=== PATIENT | male | born 1970 | race Caucasian/White ===

== ENCOUNTER 2017-04-24 17:00 | Emergency (ER) | payer MEDICAID ==
[~2017-04-24] VITALS: Ht 188 cm; Wt 95.5 kg
[2017-04-24 17:04] VITALS: BP 129/83
[2017-04-24] MEDS ORDERED: SODIUM CHLORIDE FLUSH 10ML SYR IVF ONE (17:30)
[2017-04-24] MEDS ORDERED: SODIUM CHLORIDE 0.9% 1,000 ML IV ONE (17:35)
[2017-04-24] MEDS ORDERED: MORPHINE SULFATE 4 MG/ML, 1ML ONE (17:52)
[2017-04-24] MEDS ORDERED: ONDANSETRON 2MG/ML, 2ML ONE (17:52)
[2017-04-24] MEDS ORDERED: ONDANSETRON 2MG/ML, 2ML IVPush ONE (18:00)
[2017-04-24] MEDS ORDERED: MORPHINE SULFATE 4 MG/ML, 1ML IVPush PRN (18:00)
[2017-04-24] MEDS ORDERED: HYDROcodone/APAP 5/325 TABLET PO ONE (18:00)
[2017-04-24] MEDS ORDERED: LIDOCAINE 1%, 20ML SQ ONE (18:30)
[2017-04-24 18:49] LABS: BLOOD UREA NITROGEN 15 mg/dL (7-18)
[2017-04-24] MEDS ORDERED: LIDOCAINE 1%, 20ML ONE ×2 (18:53→20:08)
[2017-04-24 19:12] LABS: DIFF TOTAL CELLS COUNTED 100 CELL DIFF
[2017-04-24 19:13] LABS: MONOS WITH VACUOLES 1+
[2017-04-24 19:15] LABS: VERIFY COUNTS? YES
[2017-04-24] MEDS ORDERED: HYDROmorphone 1 MG/ML, 1ML IM ONE (20:00)
[2017-04-24] MEDS ORDERED: CEFTRIAXONE 1,000 MG IM ONE (20:00)
[2017-04-24] MEDS ORDERED: HYDROmorphone 1 MG/ML, 1ML ONE ×2 (20:06→20:08)
[2017-04-24] MEDS ORDERED: CEFTRIAXONE 1,000 MG ONE (20:08)
== END 2017-04-24 20:56 | disposition home or self-care (01) ==
LOC: ED 20:21
DX: L02.414 Cutaneous abscess of left upper limb (principal); F15.10 Other stimulant abuse, uncomplicated; F11.10 Opioid abuse, uncomplicated
CPT/HCPCS: 10060; 36415; 73090; 80048; 82040; 85025; 96372; 99285; J0696; J1170

== ENCOUNTER 2017-06-04 18:26 | Emergency (ER) | payer MEDICAID ==
[~2017-06-04] VITALS: Ht 188 cm; Wt 94.2 kg
[2017-06-04 18:28] VITALS: BP 117/81
[2017-06-04] MEDS ORDERED: LIDOCAINE 1%, 20ML ONE (18:59)
[2017-06-04] MEDS ORDERED: LIDOCAINE 1%, 20ML SQ ONE (19:00)
[2017-06-04] MEDS ORDERED: SULFAMETH./TRIMETHOPRIM DS 800MG/160MG TABLET ONE (19:05)
[2017-06-04] MEDS ORDERED: CEFAZOLIN 1,000 MG ONE (19:05)
[2017-06-04] MEDS ORDERED: SULFAMETH./TRIMETHOPRIM DS 800MG/160MG TABLET PO ONE (19:30)
[2017-06-04] MEDS ORDERED: CEFAZOLIN 1,000 MG IM ONE (19:30)
== END 2017-06-04 19:31 | disposition home or self-care (01) ==
LOC: ED 19:25
DX: L02.414 Cutaneous abscess of left upper limb (principal); F11.10 Opioid abuse, uncomplicated
CPT/HCPCS: 10060; 96372; 99283; J0690

== ENCOUNTER 2017-07-15 07:07 | Emergency (ER) | payer MEDICAID ==
[~2017-07-15] VITALS: Ht 188 cm; Wt 93.5 kg
[2017-07-15 07:09] VITALS: BP 108/76
[2017-07-15] MEDS ORDERED: LIDOCAINE 1%, 20ML ONE (07:30)
[2017-07-15] MEDS ORDERED: LIDOCAINE 1%, 20ML SQ ONE (07:30)
== END 2017-07-15 08:02 | disposition home or self-care (01) ==
LOC: ED 07:54
DX: L02.413 Cutaneous abscess of right upper limb (principal); F17.210 Nicotine dependence, cigarettes, uncomplicated
CPT/HCPCS: 10060

== ENCOUNTER 2019-12-10 15:16 | Inpatient (IN) | payer MEDICAID ==
[~2019-12-10] VITALS: Ht 188 cm; Wt 104.0 kg
--- NOTE | 2019-12-10 15:32 | NUR ---
THIS IS A 49 YO M BIB EMS AFTER BEING FOUND UNRESPONSIVE IN THE BATHROOM AT [facility]. PT REPORTS USING "2 POINTS OF HEROIN" AT 1415. PT IS A&OX4, DIAPHORETIC, TACHYCARDIC AND HYPOXIC. ON 4L O2 NC TO KEEP >90%. PT REPORTS NAUSEA. CONNECTED TO ALL MONITORING. AT BEDSIDE FOR EVAL. WILL CONTINUE TO MONITOR.
[2019-12-10] MEDS ORDERED: NALOXONE 0.4 MG/ML, 1ML ONE ×2 (15:43→20:09)
[2019-12-10] MEDS ORDERED: NALOXONE 0.4 MG/ML, 1ML IVPush ONE ×2 (16:00→20:30)
--- NOTE | 2019-12-10 16:15 | NUR ---
PT IS SITTING UP ON GURNEY. STATES "I'M ITCHY AND I FEEL SO UNCOMFORTABLE". ALSO REPORTS NAUSEA. CONVERSING W/O DIFFICULTY. WHEN PATIENT STARTS TO FALL ASLEEP, QUICKLY DESATS. THIS RN HAS TO KEEP REMINDING PT TO KEEP NASAL CANNULA IN NOSE. CONNECTED TO MONITORING. WILL CONTINUE TO MONITOR.
[2019-12-10] MEDS ORDERED: ONDANSETRON 2MG/ML, 2ML ONE (16:34)
--- NOTE | 2019-12-10 16:37 | NUR ---
PT CONTINUES TO BE DIAPHORETIC, RESTLESS AND HYPOXIC. PER 0.4MG OF NARCAN GIVEN. PT CONNECTED TO MONITORING. ON 4L NC. WILL CONTINUE TO MONITOR.
--- NOTE | 2019-12-10 16:51 | NUR ---
PT PLACED ON CO2 MONITORING. REPORTS RELIEF OF NAUSEA AFTER MEDS. RESTING ON [employer] W/ CALL LIGHT IN REACH.
[2019-12-10] MEDS ORDERED: ONDANSETRON ODT 4 MG PO ONE (17:00)
--- NOTE | 2019-12-10 18:12 | NUR ---
PT 84% ON RA. PLACED BACK ON 4L NC.
[2019-12-10] MEDS ORDERED: SODIUM CHLORIDE 0.9% 1,000ML IVBOLUS ONE (20:30)
[2019-12-10] MEDS ORDERED: SODIUM CHLORIDE FLUSH 10ML SYR IVF ONE (20:30)
--- NOTE | 2019-12-10 20:33 | NUR ---
PT VOMITED A LARGE AMOUNT IN THE SINK. AT BEDSIDE FOR RECHECK. NEW ORDERS RECEIVED. PT PROVIDED PO FLUIDS AND WARM BLANKET FOR COMFORT. RESTING ON [employer] W/ CALL LIGHT IN REACH. CONNECTED TO MONITORING.
[2019-12-10 20:53] LABS: ALANINE AMINOTRANSFERASE 33 U/L (12-78); ALBUMIN 4.5 g/dL (3.4-5.0); ANION GAP 5 mmol/L (5-15); CALCIUM 9.2 mg/dL (8.5-10.1); CHLORIDE 104 mmol/L (98-107); CREATININE 0.98 mg/dL (0.7-1.3)
[2019-12-10 20:55] LABS: ALKALINE PHOSPHATASE 114 U/L (45-117); BILIRUBIN,TOTAL 1.1 mg/dL (0.2-1.0); TOTAL PROTEIN 8.9 g/dL (6.4-8.2)
[2019-12-10] MEDS ORDERED: CEFTRIAXONE PMX 1GM/50ML 50 ML IVPB ONE (21:00)
--- NOTE | 2019-12-10 21:03 | NUR ---
LAB IN ROOM DRAWING CULTURES.
[2019-12-10 21:14] LABS: MEAN CORPUSCULAR HEMOGLOBIN 30.3 pg (27.5-34.5); MEAN CORPUSCULAR HGB CONC 33.9 g/dL (33.2-36.2); MEAN CORPUSCULAR VOLUME 89.4 fL (81-97); PLATELET COUNT 298 x10^3/uL (130-400); RED BLOOD COUNT 5.51 x10^6/uL (4.38-5.82); RED CELL DISTRIBUTION WIDTH 13.5 % (9.4-14.8)
[2019-12-10] MEDS ORDERED: CEFTRIAXONE PMX 1GM/50ML 50 ML ONE (21:18)
[2019-12-10 21:27] LABS: MD YES
[2019-12-10 21:28] LABS: BAND#(MANUAL) 1.62 x10^3/uL; BANDS%(MANUAL) 16 % (0-7); LYMPH#(MANUAL) 0.51 x10^3/uL (1-3.4); LYMPHS% (MANUAL) 5 % (22-44); METAMYELOCYTES% (MANUAL) 1 % (0-1); MONOS% (MANUAL) 1 % (2-9); SEG#(MANUAL) 7.78 x10^3/uL (1.8-6.8); SEGS% (MANUAL) 77 % (42-75)
[2019-12-10 21:29] LABS: <PLATELET ESTIMATE> ADEQUATE; <PLT MORPHOLOGY> NORMAL PLT MORPH; <RBC MORPHOLOGY> NORMAL; SMUDGE CELLS 1+
[2019-12-10] MEDS ORDERED: VANCOMYCIN 2,500 MG in SODIUM CHLORIDE 0.9% 500 ML IV ONE (21:30)
[2019-12-10] MEDS ORDERED: VANCOMYCIN PER PHARMACY MC PRN ×2 (21:30→23:00)
--- NOTE | 2019-12-10 21:38 | NUR ---
PT AMBULATED DOWN THE FIGUEROA TO THE PHONE W/ A STEADY GAIT.
[2019-12-10 21:39] LABS: AMPHETAMINE SCREEN, URINE Positive (Negative); BARBITURATE SCREEN, URINE Negative (Negative); BENZODIAZEPINE SCREEN, URINE Negative (Negative); CANNABINOID SCREEN, URINE Negative (Negative); COCAINE SCREEN, URINE Negative (Negative); METHADONE SCREEN, URINE Negative (Negative); OPIATE SCREEN, URINE Positive (Negative)
--- NOTE | 2019-12-10 21:47 | NUR ---
ADMITTING PROVIDER IN ROOM.
[2019-12-10] MEDS ORDERED: SODIUM CHLORIDE FLUSH 10ML SYR IVF PRN (22:00)
[2019-12-10] MEDS ORDERED: ONDANSETRON ODT 4 MG PO PRN (23:30)
[2019-12-10] MEDS ORDERED: ACETAMINOPHEN 325 MG TABLET PO PRN (23:30)
[2019-12-10] MEDS ORDERED: LIDODERM 5% PATCH TD PRN (23:30)
[2019-12-10] MEDS ORDERED: TEMAZEPAM 15 MG CAPSULE PO PRN (23:30)
[2019-12-10] MEDS ORDERED: DOCUSATE 100 MG CAPSULE PO PRN (23:30)
[2019-12-10] MEDS ORDERED: ENOXAPARIN 40 MG/0.4 ML ONE (23:41)
[2019-12-10] MEDS ORDERED: NICOTINE 7 MG/24 HR PATCH.TD24 ONE (23:41)
[2019-12-10] MEDS: ENOXAPARIN 40 MG/0.4 ML SQ SCH (23:44)
[2019-12-10] MEDS: NICOTINE 7 MG/24 HR PATCH.TD24 TD SCH (23:45)
--- NOTE | 2019-12-11 00:34 | NUR ---
REPORT GIVEN TO DELONTE HOLGUIN. PT IS READY FOR TRANSPORT AT THIS TIME.
[2019-12-11] MEDS ORDERED: PIPERACILLIN/TAZO/PMX 3.375GM 50 ML IV SCH (01:00)
[2019-12-11] MEDS ORDERED: PHARMACOKINETIC MONITORING MC PRN (01:00)
[2019-12-11 01:09] VITALS: BP 107/76
[2019-12-11 02:24] VITALS: BP 91/54
[2019-12-11] MEDS ORDERED: CALCIUM CARBONATE 500 MG TAB.CHEW PO PRN (04:30)
[2019-12-11 05:13] LABS: MEAN CORPUSCULAR HEMOGLOBIN 30.4 pg (27.5-34.5); MEAN CORPUSCULAR HGB CONC 33.9 g/dL (33.2-36.2); MEAN CORPUSCULAR VOLUME 89.8 fL (81-97); MEAN PLATELET VOLUME 7.3 fL (7.4-10.4); PLATELET COUNT 258 x10^3/uL (130-400); RED BLOOD COUNT 5.08 x10^6/uL (4.38-5.82); RED CELL DISTRIBUTION WIDTH 13.5 % (9.4-14.8)
[2019-12-11 05:24] LABS: ANION GAP 6 mmol/L (5-15); CALCIUM 8.4 mg/dL (8.5-10.1); CHLORIDE 106 mmol/L (98-107); CREATININE 1.04 mg/dL (0.7-1.3)
[2019-12-11 05:39] LABS: MD YES
[2019-12-11 05:41] LABS: <RBC MORPHOLOGY> NORMAL; BAND#(MANUAL) 2.93 x10^3/uL; BANDS%(MANUAL) 18 % (0-7); LYMPH#(MANUAL) 0.82 x10^3/uL (1-3.4); LYMPHS% (MANUAL) 5 % (22-44); MONOS#(MANUAL) 0.16 x10^3/uL (0.3-2.7); MONOS% (MANUAL) 1 % (2-9); SEG#(MANUAL) 12.39 x10^3/uL (1.8-6.8); SEGS% (MANUAL) 76 % (42-75)
[2019-12-11 05:42] LABS: <PLATELET ESTIMATE> ADEQUATE; <PLT MORPHOLOGY> NORMAL PLT MORPH; TOXIC GRAN 1+
[2019-12-11 09:00] VITALS: BP 100/67
[2019-12-11] MEDS: AZITHROMYCIN 500 MG in SODIUM CHLORIDE 0.9% 250 ML IV SCH (09:02)
[2019-12-11 14:57] VITALS: BP 109/75
[2019-12-11] MEDS ORDERED: CEFTRIAXONE PMX 1GM/50ML 50 ML IV SCH (21:00)
[2019-12-11 21:30] VITALS: BP 114/76
[2019-12-12] MEDS: NICOTINE 7 MG/24 HR PATCH.TD24 TD SCH (00:26)
[2019-12-12] MEDS: ENOXAPARIN 40 MG/0.4 ML SQ SCH (00:26)
[2019-12-12 02:09] VITALS: BP 102/71
[2019-12-12 08:10] VITALS: BP 116/78
[2019-12-12] MEDS: AZITHROMYCIN 500 MG in SODIUM CHLORIDE 0.9% 250 ML IV SCH (08:16)
[2019-12-12] MEDS ORDERED: AZIT500T PO (10:02)
[2019-12-12] MEDS ORDERED: CEFD300C37 PO (10:02)
[2019-12-12 10:49] LABS: MEAN CORPUSCULAR HEMOGLOBIN 30.4 pg (27.5-34.5); MEAN CORPUSCULAR HGB CONC 33.5 g/dL (33.2-36.2); MEAN CORPUSCULAR VOLUME 90.8 fL (81-97); MEAN PLATELET VOLUME 6.8 fL (7.4-10.4); PLATELET COUNT 303 x10^3/uL (130-400); RED BLOOD COUNT 4.59 x10^6/uL (4.38-5.82); RED CELL DISTRIBUTION WIDTH 13.5 % (9.4-14.8)
[2019-12-12 11:09] LABS: MD YES
[2019-12-12 11:11] LABS: <PLATELET ESTIMATE> ADEQUATE; <PLT MORPHOLOGY> NORMAL PLT MORPH; <RBC MORPHOLOGY> NORMAL; BAND#(MANUAL) 0.14 x10^3/uL; BANDS%(MANUAL) 1 % (0-7); BASOS#(MANUAL) 0.14 x10^3/uL (0-0.1); BASOS% (MANUAL) 1 % (0-1); EOS#(MANUAL) 0.41 x10^3/uL (0.0-0.4); EOS% (MANUAL) 3 % (1-7); LYMPH#(MANUAL) 1.92 x10^3/uL (1-3.4); LYMPHS% (MANUAL) 14 % (22-44); MONOS#(MANUAL) 0.96 x10^3/uL (0.3-2.7); MONOS% (MANUAL) 7 % (2-9); SEG#(MANUAL) 10.14 x10^3/uL (1.8-6.8); SEGS% (MANUAL) 74 % (42-75)
== END 2019-12-12 12:50 | disposition home or self-care (01) | DRG 816 ==
LOC: ED 18:49 → EDIP 21:48 → ICU 12-11 00:49
PROVIDERS: ADMIT Family Medicine; ATTEND Internal Medicine
DX: T40.1X1A Poisoning by heroin, accidental (unintentional), initial encounter (principal); J96.01 Acute respiratory failure with hypoxia; A41.9 Sepsis, unspecified organism; J15.9 Unspecified bacterial pneumonia; E87.5 Hyperkalemia; Z87.891 Personal history of nicotine dependence; Y92.89 Other specified places as the place of occurrence of the external cause
CPT/HCPCS: 36415; 71045; 80048; 80053; 80074; 80307; 83605; 83880; 84145; 85025; 87040; 87081; 87521; 87806; 96361; 96365; 96366; 96367; G0378; J0456; J0696; J1650; J2310; J2543; J3370; Q0162; G0475; J7030; J7040; J7050